=== PATIENT | male | born 1990 | race Two or more races ===

== ENCOUNTER 2019-12-02 22:19 | Emergency (ER) | payer SELFPAY ==
[~2019-12-02] VITALS: Ht 188 cm; Wt 98.0 kg
[2019-12-02 22:24] VITALS: Ht 188 cm; Wt 98.0 kg
[2019-12-02 23:04] VITALS: BP 118/73
== END 2019-12-02 23:04 | disposition home or self-care (01) ==
LOC: ED 22:19
DX: S13.4XXA Sprain of ligaments of cervical spine, initial encounter (principal); V89.2XXA Person injured in unspecified motor-vehicle accident, traffic, initial encounter; Y93.I9 Activity, other involving external motion; Y92.413 State road as the place of occurrence of the external cause; Y99.8 Other external cause status
CPT/HCPCS: J1885

== ENCOUNTER 2020-10-08 19:32 | Emergency (ER) | payer SELFPAY ==
[~2020-10-08] VITALS: Ht 188 cm; Wt 104.3 kg
[2020-10-08 19:51] VITALS: Ht 188 cm; Wt 104.3 kg
[2020-10-08 21:23] VITALS: BP 126/80
== END 2020-10-08 21:23 | disposition home or self-care (01) ==
LOC: ED 19:32
DX: S61.012A Laceration without foreign body of left thumb without damage to nail, initial encounter (principal); W26.0XXA Contact with knife, initial encounter; Y93.89 Activity, other specified; Y92.89 Other specified places as the place of occurrence of the external cause; Y99.8 Other external cause status
CPT/HCPCS: J2001

== ENCOUNTER 2020-10-16 15:04 | Emergency (ER) | payer SELFPAY | END 2020-10-16 15:54 | disposition left against medical advice (07) | LOC: ED 15:04 | DX: Z53.21 Procedure and treatment not carried out due to patient leaving prior to being seen by health care provider (principal) ==